=== PATIENT | male | born 1965 | race Caucasian/White ===

== ENCOUNTER 2020-08-29 13:23 | Emergency (ER) | payer OTHER ==
[~2020-08-29] VITALS: Ht 172.7 cm; Wt 90.7 kg
[2020-08-29 13:36] VITALS: BP_SYST 138
--- NOTE | 2020-08-29 13:41 | NUR ---
Patient triaged and placed on wall. VSS and patient appears in no acute distress at this time. Accompanied by rod machine operator, awaiting available bed, and MD notified of need for MSE.
[2020-08-29] MEDS ORDERED: LORazepam 2 MG/ML VIAL IVP ONE (14:00)
[2020-08-29] MEDS ORDERED: LORazepam 2 MG/ML VIAL ONE (14:00)
--- NOTE | 2020-08-29 14:00 | NUR ---
placed in bed 1
--- NOTE | 2020-08-29 14:05 | NUR ---
Pt came to ER after seizure presents in postictal state, confused, able to follow simple commands, may need some assistance, VSS, awaiting MD.
--- NOTE | 2020-08-29 14:10 | NUR ---
ER at bedside examining patient.
[2020-08-29 14:20] LABS: BASOPHILS # (AUTO) 0.1 K/uL (0.0-0.2); BASOPHILS % (AUTO) 0.9 % (0.0-2.0); EOSINOPHILS # (AUTO) 0.2 K/uL (0.0-0.4); EOSINOPHILS % (AUTO) 2.8 % (0.0-4.0); HEMATOCRIT 44.5 % (36-54); HEMOGLOBIN 15.7 g/dL (14.0-18.0); LYMPHOCYTES # (AUTO) 1.5 K/uL (1.0-5.5); LYMPHOCYTES % (AUTO) 23.9 % (20.5-51.5); MEAN CORPUSCULAR HEMOGLOBIN 32 pg (27-31); MEAN CORPUSCULAR HGB CONC 35 % (32-36); MEAN CORPUSCULAR VOLUME 91 fL (79.0-98.0); MONOCYTES # (AUTO) 0.3 K/uL (0.0-1.0); NEUTROPHILS # (AUTO) 4.3 K/uL (1.8-7.7); NEUTROPHILS % (AUTO) 67.4 % (40.0-70.0); PLATELET COUNT (AUTO) 148 K/uL (130-430); RED BLOOD CELL COUNT(AUTO) 4.91 MIL/uL (4.2-6.2); RED CELL DISTRIBUTION WIDTH 12.9 % (9.0-15.0); WHITE BLOOD COUNT (AUTO) 6.4 K/uL (4.8-10.8)
[2020-08-29 14:42] LABS: PROTHROMBIN TIME 10.2 SECS (9.5-12.5)
[2020-08-29 15:04] LABS: ANION GAP 11 (5-15); CALCIUM 8.5 mg/dL (8.4-11.0); CHLORIDE 105 mmol/L (98-107); CREATININE 1.13 mg/dL (0.55-1.30); GLUCOSE 121 mg/dL (70-99); POTASSIUM 3.9 mmol/L (3.5-5.1); SODIUM SERUM 139 mmol/L (136-145); UREA NITROGEN, BLOOD 14 mg/dL (8-21)
[2020-08-29 15:12] LABS: GFR AFRICAN AMERICAN 87 mL/min (>90)
[2020-08-29 15:15] LABS: ALANINE AMINOTRANSFERASE 28 U/L (12-78); ALBUMIN 4.2 g/dL (3.4-4.8); ALCOHOL, BLOOD < 3 mg/dL (<10); ASPARTATE AMINOTRANSFERASE 20 U/L (10-37); FREE T4 (FREE THYROXINE) 1.9 ng/dl (0.8-1.5); TOTAL BILIRUBIN 0.6 mg/dL (0.0-1.0)
--- NOTE | 2020-08-29 16:02 | NUR ---
Pt resting in [facility] at this time, VSS
[2020-08-29] MEDS ORDERED: levETIRAcetam 500 MG IV PREMIX 100 ML IV ONE (16:45)
--- NOTE | 2020-08-29 17:58 | NUR ---
Pt asleep in [facility] at this time VSS
[2020-08-29 18:27] VITALS: BP_SYST 148
--- NOTE | 2020-08-29 18:27 | NUR ---
Patient given written and verbal discharge instructions and verbalizes understanding. ER MD discussed with patient the results and treatment provided. Patient in stable condition. ID arm band removed. IV catheter removed intact and dressing applied, no active bleeding. Rx of Keppra given. Patient educated on pain management and to follow up with PMD. Pain Scale 0/10. Opportunity for questions provided and answered. Medication side effect fact sheet provided.
== END 2020-08-29 18:27 | disposition home or self-care (01) ==
LOC: SED 13:23
DX: G40.909 Epilepsy, unspecified, not intractable, without status epilepticus (principal); I10 Essential (primary) hypertension; Z86.73 Personal history of transient ischemic attack (TIA), and cerebral infarction without residual deficits
CPT/HCPCS: 36415; 70450; 71045; 74018; 76376; 80053; 82140; 83605; 83880; 84439; 84484; 85025; 85610; 87040; 93005; 96365; 96375; 99285; G0482; J1953; J2060